=== PATIENT | female | born 1950 | race Caucasian/White ===

== ENCOUNTER 2017-04-16 14:15 | Inpatient (IN) ==
--- NOTE | 2017-04-16 14:54 | Internal Med History&Physical ---
Date of Encounter: 04/16/17 Time of Encounter: 15:35 Assessment and Plan (1) CVA (cerebral vascular accident) Current visit: Yes Status: Acute Patient's here for rehabilitation due to weakness poor balance right sided weakness Qualifiers: Precerebral and cerebral artery: unspecified precerebral artery Qualified Code(s): I63.00 - Cerebral infarction due to thrombosis of unspecified precerebral artery (2) COPD (chronic obstructive pulmonary disease) Current visit: Yes Status: Acute Right now seems quiescent. Qualifiers: COPD type: emphysema Qualified Code(s): J43.9 - Emphysema, unspecified (3) HTN (hypertension) Current visit: Yes Status: Acute Will follow blood pressure Qualifiers: Hypertension type: essential hypertension Qualified Code(s): I10 - Essential (primary) hypertension Internal Medicine - H&P: HPI Chief complaint: Patient has CVA was transferred here for rehabilitation. She has some righ Admitted From: Hospital to Hospital Transfer Plans for Post Hospital Care: Home History of present illness: Ms. Monzon is a 66 year old female The patient lives alone but has a daughter that helps her and is here for rehabilitation Past Med Surg Social Fam HX - Past Medical History Medical history: COPD, GERD (diverticulosis,), hypertension - Past Surgical History Surgical History: breast surgery (Umbilical hernia repair), , cholecystectomy Internal Medicine - H&P: Meds ALPRAZolam [Xanax 0.5 MG Tablet] 0.5 mg PO BID 04/16/17 [History] Albuterol Sulfate [Proair Hfa] 2 puff IH Q2HR PRN 04/16/17 [History] Aspirin [Ecotrin] 81 mg PO DAILY 04/16/17 [History] Atorvastatin [Lipitor] 10 mg PO HS 04/16/17 [History] Clopidogrel Bisulfate [Plavix] 75 mg PO DAILY 04/16/17 [History] Dicyclomine [Bentyl] 10 mg PO QID PRN 04/16/17 [History] Fluticasone/Salmeterol [Advair 250-50 Diskus] 1 each IH BID 04/16/17 [History] Lisinopril [Zestril] 10 mg PO DAILY 04/16/17 [History] Ondansetron [Zofran] 8 mg PO Q8HR PRN 04/16/17 [History] Pantoprazole Sodium [Protonix] 40 mg PO DAILY 04/16/17 [History] Polyethylene Glycol [Polyox Wsr-301] 1 gm PO DAILY 04/16/17 [History] PredniSONE [Renard] 5 mg PO DAILY 04/16/17 [History] Saxagliptin HCl [Onglyza] 5 mg PO 04/16/17 [History] Tiotropium [Spiriva] 18 mcg IH 0700 04/16/17 [History] Tramadol HCl [Ultram] 50 mg PO BID PRN 04/16/17 [History] Allergies levofloxacin [From Levaquin] Allergy (Mild, Verified 04/16/17 15:16) Rash atenolol Allergy (Verified 04/16/17 15:17) Rash Gatifloxacin [From Tequin] Allergy (Verified 04/16/17 15:18) Rash All Systems PM: A 10-system review of systems was performed and is negative for pertinent findings except as documented above in the HPI. - Constitutional Vitals: Temp Pulse Resp BP Pulse Ox 98.3 F 66 16 163/82 93 04/16/17 14:34 04/16/17 14:34 04/16/17 14:34 04/16/17 14:34 04/16/17 14:34 - Head Head exam: Present: atraumatic, normal inspection, normocephalic - Neck Neck exam general surgery: Present: supple, trachea midline. Absent: lymphadenopathy - Respiratory Respiratory exam: Present: CTAB. Absent: accessory muscle use, rales, rhonchi, wheezes - Cardiovascular Cardiovascular exam: Present: RRR, +S1, +S2. Absent: diastolic murmur, gallop, rubs, systolic murmur - Neurological Exam Neurological exam: Present: CN II-XII intact, oriented X3, no focal deficits, facial droop (Facial droop seems to have resolved generally speaking. Speech is clear. still seems to be some dysphagia..). Absent: pronater drift, speech deficit
[2017-04-16] MEDS ORDERED: ALPRAZolam 0.5 MG TABLET PO SCH (17:00)
[2017-04-16] MEDS: ALPRAZolam 0.5 MG TABLET PO PRN (17:01)
[2017-04-16] MEDS ORDERED: D5% in Water 1,000 ML IVC PRN (17:13)
[2017-04-16] MEDS ORDERED: *HR* Dextrose 50 % in Water (Syg) 50 ML SYRINGE IVP PRN (17:13)
[2017-04-16] MEDS ORDERED: Dextrose Gel 15 GM PO PRN ×2 (17:13)
[2017-04-16] MEDS: Insulin LISPRO 300 UNITS/3 ML VIAL SQ SCH (20:43)
[2017-04-16] MEDS: traMADol 50 MG TABLET PO PRN (20:46)
[2017-04-16] MEDS: ALPRAZolam 0.5 MG TABLET PO SCH (20:47)
[2017-04-16] MEDS: Budesonide/Formoterol 80/4.5 MDI IH SCH (20:47)
[2017-04-17 05:27] LABS: INR 1.1; Prothrombin Time 11.4 Seconds (9.4-12.1)
[2017-04-17 05:28] LABS: Basophils # 0.1 K/mcL (0.0-0.2); Basophils % 0.4 %; Eosinophils # 0.2 K/mcL (0.0-0.6); Eosinophils % 1.5 %; Hematocrit 37.5 % (35.3-44.9); Hemoglobin 12.8 g/dL (11.5-15.4); Immature Granulocytes % 0.6 % (0-4); Lymphocytes # 3.7 K/mcL (0.6-4.6); Lymphocytes % 30.1 %; Mean Corpuscular HGB Conc 34.1 g/dL (31.6-35.5); Mean Corpuscular Hemoglobin 29.6 pg (28.0-33.3); Mean Corpuscular Volume 86.6 fL (83.0-100.0); Mean Platelet Volume 10.6 fL (9.4-12.4); Monocytes # 1.1 K/mcL (0.0-1.3); Monocytes % 9.2 %; Neutrophils # 7.2 K/mcL (1.6-8.9); Platelet Count 280 K/mcL (140-400); Red Blood Count 4.33 M/mcL (3.82-4.97); Red Cell Distribution Width 12.8 % (11.5-14.5); Segmented Neutrophils % 58.2 %
[2017-04-17 05:39] LABS: BUN/Creatinine Ratio 7 (6-26); Carbon Dioxide 28 mEq/L (19-29); Chloride 102 mEq/L (98-109); Glucose 136 mg/dL (70-99); Osmolality,Calculated 287 (280-300); Potassium 3.5 mEq/L (3.5-4.5); Sodium 139 mEq/L (136-145); eGFR For African Americans > 60 (> 60); eGFR For Non-African Americans > 60 (> 60)
[2017-04-17 05:46] LABS: Blood Urea Nitrogen 5 mg/dL (7-20)
[2017-04-17] MEDS: Tiotropium 18 MCG inhalation IH SCH (06:11)
[2017-04-17] MEDS: traMADol 50 MG TABLET PO PRN ×2 (06:20→14:02)
[2017-04-17] MEDS: Insulin LISPRO 300 UNITS/3 ML VIAL SQ SCH ×4 (07:38→20:31)
[2017-04-17] MEDS: predniSONE 5 MG TABLET PO SCH (08:01)
[2017-04-17] MEDS: SAXAGLIPTIN 5 MG PO SCH ×2 (08:02→13:59)
[2017-04-17] MEDS: ALPRAZolam 0.5 MG TABLET PO SCH ×2 (08:02→20:34)
[2017-04-17] MEDS: Budesonide/Formoterol 80/4.5 MDI IH SCH ×2 (10:33→20:32)
[2017-04-17] MEDS: Aspirin Enteric Coated 81 MG Tablet PO SCH (10:33)
--- NOTE | 2017-04-17 11:53 | Internal Med Progress Note ---
Date of Encounter: 04/17/17 Time of Encounter: 11:51 - Assessment and plan (1) CVA (cerebral vascular accident) Current Visit: Yes Status: Acute Assessment and plan: Patient's currently working with PT OT TR. Doing very well. She also sees speech for dysphagia Qualifiers: Precerebral and cerebral artery: unspecified precerebral artery Qualified Code(s): I63.00 - Cerebral infarction due to thrombosis of unspecified precerebral artery (2) COPD (chronic obstructive pulmonary disease) Current Visit: Yes Status: Acute Assessment and plan: No problems right now with breathing Qualifiers: COPD type: emphysema Qualified Code(s): J43.9 - Emphysema, unspecified (3) HTN (hypertension) Current Visit: Yes Status: Acute Assessment and plan: Blood pressure reasonable watch the diastolic Qualifiers: Hypertension type: essential hypertension Qualified Code(s): I10 - Essential (primary) hypertension - Time Spent With Patient less than 15 minutes - Subjective Interval history: The patient looks very good. She is up dressed and working with therapists. She is up with walker. And her only complaint is right shoulder pain after a fall at home. We will get an x-ray on that. I doubt there are any fractures because she can add abduct.the shoulder without pain to much - Constitutional Vitals: Temp Pulse Resp BP Pulse Ox 98.0 F 60 16 158/77 94 04/17/17 06:54 04/17/17 06:54 04/17/17 06:54 04/17/17 06:54 04/17/17 06:54 - Head Head exam: Present: atraumatic, normal inspection, normocephalic - Neck Neck exam general surgery: Present: supple, trachea midline. Absent: lymphadenopathy - Respiratory Respiratory exam: Present: CTAB. Absent: accessory muscle use, rales, rhonchi, wheezes - Cardiovascular Cardiovascular exam: Present: RRR, +S1, +S2. Absent: diastolic murmur, gallop, rubs, systolic murmur Internal Medicine: Result - Labs CBC & Chem 7: 04/17/17 05:15 04/17/17 05:15 Labs: Short CBC 04/17/17 Range/Units 05:15 WBC 12.3 H (4.3-11.1) K/mcL Hgb 12.8 (11.5-15.4) g/dL Hct 37.5 (35.3-44.9) % Plt Count 280 (140-400) K/mcL Neutrophils # 7.2 (1.6-8.9) K/mcL BMP 04/17/17 05:15 Sodium 139 Potassium 3.5 Chloride 102 Carbon Dioxide 28 BUN 5 L Creatinine 0.68 Glucose 136 H Calcium 10.0 Labs stable - ABG Interpretation ABG results: PT/INR, D-dimer PT 11.4 Seconds (9.4-12.1) 04/17/17 05:15 - VTE Documentation of Mechanical Device: Graduated compression elastic hosiery Consult Discharge Plan - Plan Referrals: NO,PCP [Primary Care Provider] -
[2017-04-17] MEDS: Patient Taking Own Medication 1 EACH PO SCH ×2 (14:38→20:32)
[2017-04-17] MEDS: ALPRAZolam 0.5 MG TABLET PO PRN (16:43)
[2017-04-18] MEDS: Tiotropium 18 MCG inhalation IH SCH (05:36)
[2017-04-18] MEDS: Insulin LISPRO 300 UNITS/3 ML VIAL SQ SCH ×4 (07:21→20:18)
[2017-04-18] MEDS: ALPRAZolam 0.5 MG TABLET PO SCH ×2 (08:18→19:44)
[2017-04-18] MEDS: Aspirin Enteric Coated 81 MG Tablet PO SCH (09:53)
[2017-04-18] MEDS: predniSONE 5 MG TABLET PO SCH (09:53)
[2017-04-18] MEDS: ALPRAZolam 0.5 MG TABLET PO PRN ×2 (09:54→14:09)
[2017-04-18] MEDS: Patient Taking Own Medication 1 EACH PO SCH (10:00)
[2017-04-18] MEDS: Budesonide/Formoterol 80/4.5 MDI IH SCH ×2 (10:01→19:49)
--- NOTE | 2017-04-18 11:22 | Internal Med Progress Note ---
Date of Encounter: 04/18/17 Time of Encounter: 11:20 - Assessment and plan (1) CVA (cerebral vascular accident) Current Visit: Yes Status: Acute Assessment and plan: Here for CVA treatment. Very nervous very nervous. She is basically anxious ridden. And we have reassured her. Today she is dressed smiling looks good and I explained her that tomorrow will be hitting the therapy. Qualifiers: Precerebral and cerebral artery: unspecified precerebral artery Qualified Code(s): I63.00 - Cerebral infarction due to thrombosis of unspecified precerebral artery (2) COPD (chronic obstructive pulmonary disease) Current Visit: Yes Status: Acute Assessment and plan: COPD by history right now seems quiescent Qualifiers: COPD type: emphysema Qualified Code(s): J43.9 - Emphysema, unspecified (3) HTN (hypertension) Current Visit: Yes Status: Acute Assessment and plan: Patient has well controlled blood pressure Qualifiers: Hypertension type: essential hypertension Qualified Code(s): I10 - Essential (primary) hypertension - Time Spent With Patient less than 15 minutes - Subjective Interval history: Patient very nervous lady. Patient's blood sugars are well controlled to lunch was 116. So she is doing very well there. They are warm and pulses are good and basically she needs reassurance. - Constitutional Vitals: Temp Pulse Resp BP Pulse Ox 97.8 F 66 16 118/69 94 04/18/17 07:00 04/18/17 07:00 04/18/17 07:00 04/18/17 07:00 04/18/17 07:00 - Head Head exam: Present: atraumatic, normal inspection, normocephalic - Neck Neck exam general surgery: Present: supple, trachea midline. Absent: lymphadenopathy - Respiratory Respiratory exam: Present: decreased breath sounds, CTAB, prolonged expiratory phase. Absent: accessory muscle use, rales, rhonchi, wheezes - Cardiovascular Cardiovascular exam: Present: RRR, +S1, +S2. Absent: diastolic murmur, gallop, rubs, systolic murmur Internal Medicine: Result - Labs CBC & Chem 7: 04/17/17 05:15 04/17/17 05:15 Labs: Labs good - ABG Interpretation ABG results: PT/INR, D-dimer PT 11.4 Seconds (9.4-12.1) 04/17/17 05:15 - Impressions Impressions Shoulder X-Ray 04/17/17 11:50 IMPRESSION: Degenerative changes without acute osseous abnormality D/ / Braden Koenig / Braden Koenig Interpreting Provider: Braden Koenig - VTE Documentation of Mechanical Device: Graduated compression elastic hosiery Consult Discharge Plan - Plan Referrals: NO,PCP [Primary Care Provider] -
[2017-04-18] MEDS: traMADol 50 MG TABLET PO PRN (12:06)
[2017-04-18] MEDS: MOM Conc 10 ML UD.LIQ PO SCH (19:44)
[2017-04-19 05:43] LABS: Basophils % 0.2 %; Eosinophils # 0.2 K/mcL (0.0-0.6); Eosinophils % 1.5 %; Hematocrit 36.9 % (35.3-44.9); Hemoglobin 12.1 g/dL (11.5-15.4); Immature Granulocytes % 0.9 % (0-4); Lymphocytes # 3.3 K/mcL (0.6-4.6); Lymphocytes % 27.7 %; Mean Corpuscular HGB Conc 32.8 g/dL (31.6-35.5); Mean Corpuscular Hemoglobin 29.2 pg (28.0-33.3); Mean Corpuscular Volume 89.1 fL (83.0-100.0); Mean Platelet Volume 10.9 fL (9.4-12.4); Monocytes # 1.2 K/mcL (0.0-1.3); Monocytes % 10.1 %; Neutrophils # 7.2 K/mcL (1.6-8.9); Platelet Count 289 K/mcL (140-400); Red Blood Count 4.14 M/mcL (3.82-4.97); Red Cell Distribution Width 13.2 % (11.5-14.5); Segmented Neutrophils % 59.6 %
[2017-04-19 05:53] LABS: BUN/Creatinine Ratio 11 (6-26); Blood Urea Nitrogen 8 mg/dL (7-20); Calcium 9.5 mg/dL (8.6-10.8); Carbon Dioxide 30 mEq/L (19-29); Chloride 101 mEq/L (98-109); Glucose 161 mg/dL (70-99); Osmolality,Calculated 290 (280-300); Potassium 3.9 mEq/L (3.5-4.5); Sodium 139 mEq/L (136-145); eGFR For African Americans > 60 (> 60); eGFR For Non-African Americans > 60 (> 60)
[2017-04-19] MEDS: Aspirin Enteric Coated 81 MG Tablet PO SCH (08:38)
[2017-04-19] MEDS: traMADol 50 MG TABLET PO PRN (09:04)
[2017-04-19] MEDS: Patient Taking Own Medication 1 EACH PO SCH ×2 (09:06→21:57)
[2017-04-19] MEDS: predniSONE 5 MG TABLET PO SCH (09:06)
[2017-04-19] MEDS: ALPRAZolam 0.5 MG TABLET PO SCH ×2 (09:06→21:57)
[2017-04-19] MEDS: Insulin LISPRO 300 UNITS/3 ML VIAL SQ SCH ×2 (09:07→13:13)
[2017-04-19] MEDS: ALPRAZolam 0.5 MG TABLET PO PRN (10:47)
[2017-04-19] MEDS: Tiotropium 18 MCG inhalation IH SCH (10:48)
[2017-04-19] MEDS: Budesonide/Formoterol 80/4.5 MDI IH SCH ×2 (10:48→21:58)
--- NOTE | 2017-04-19 13:49 | Internal Med Progress Note ---
Date of Encounter: 04/19/17 Time of Encounter: 13:47 - Assessment and plan (1) CVA (cerebral vascular accident) Current Visit: Yes Status: Acute Assessment and plan: Patient's here for CVA recovery Qualifiers: Precerebral and cerebral artery: unspecified precerebral artery Qualified Code(s): I63.00 - Cerebral infarction due to thrombosis of unspecified precerebral artery (2) COPD (chronic obstructive pulmonary disease) Current Visit: Yes Status: Acute Assessment and plan: COPD seems quiet Qualifiers: COPD type: emphysema Qualified Code(s): J43.9 - Emphysema, unspecified (3) HTN (hypertension) Current Visit: Yes Status: Acute Assessment and plan: Blood pressure is well controlled Qualifiers: Hypertension type: essential hypertension Qualified Code(s): I10 - Essential (primary) hypertension - Time Spent With Patient less than 15 minutes - Subjective Interval history: Patient's anxiety still her most limiting factor. She had a good day though ambulating with a walker working with therapist and the nurse took her to the [employer] shop. She is very happy about that but still continues to have many many multiple issues. - Constitutional Vitals: Temp Pulse Resp BP Pulse Ox 97.8 F 78 16 132/70 96 04/19/17 07:43 04/19/17 07:43 04/19/17 07:43 04/19/17 07:43 04/19/17 07:43 - Head Head exam: Present: atraumatic, normal inspection, normocephalic - Neck Neck exam general surgery: Present: supple, trachea midline. Absent: lymphadenopathy - Respiratory Respiratory exam: Present: CTAB. Absent: accessory muscle use, rales, rhonchi, wheezes - Cardiovascular Cardiovascular exam: Present: RRR, +S1, +S2. Absent: diastolic murmur, gallop, rubs, systolic murmur Internal Medicine: Result - Labs CBC & Chem 7: 04/19/17 05:10 04/19/17 05:10 Labs: Short CBC 04/19/17 Range/Units 05:10 WBC 12.0 H (4.3-11.1) K/mcL Hgb 12.1 (11.5-15.4) g/dL Hct 36.9 (35.3-44.9) % Plt Count 289 (140-400) K/mcL Neutrophils # 7.2 (1.6-8.9) K/mcL BMP 04/19/17 05:10 Sodium 139 Potassium 3.9 Chloride 101 Carbon Dioxide 30 H BUN 8 Creatinine 0.73 Glucose 161 H Calcium 9.5 Lab is stable - ABG Interpretation ABG results: PT/INR, D-dimer PT 11.4 Seconds (9.4-12.1) 04/17/17 05:15 - VTE Documentation of Mechanical Device: Graduated compression elastic hosiery Consult Discharge Plan - Plan Referrals: NO,PCP [Primary Care Provider] -
[2017-04-19 16:54] LABS: Bilirubin,Urine Negative (Negative); Blood,Urine Negative (Negative); Clarity,Urine Clear (Clear); Color,Urine Yellow (Yellow); Glucose,Urine (UA) Normal (Normal); Ketones,Urine Negative (Negative); Leukocyte Esterase,Urine Negative (Negative); Nitrite,Urine Negative (Negative); PH,Urine 6.5 pH Units (5.0-8.0); Protein,Urine Negative (Neg-Trace); Urobilinogen,Urine Normal (Normal)
[2017-04-19] MEDS: MOM Conc 10 ML UD.LIQ PO SCH (21:57)
[2017-04-19] MEDS: Acetaminophen 325 MG TABLET PO PRN (21:57)
[2017-04-20] MEDS: ALPRAZolam 0.5 MG TABLET PO SCH ×2 (09:13→21:38)
[2017-04-20] MEDS: Aspirin Enteric Coated 81 MG Tablet PO SCH (09:14)
[2017-04-20] MEDS: predniSONE 5 MG TABLET PO SCH (09:14)
[2017-04-20] MEDS: Tiotropium 18 MCG inhalation IH SCH (09:14)
[2017-04-20] MEDS: Budesonide/Formoterol 80/4.5 MDI IH SCH ×2 (09:14→21:39)
--- NOTE | 2017-04-20 13:50 | Internal Med Progress Note ---
Date of Encounter: 04/20/17 Time of Encounter: 13:48 - Assessment and plan (1) CVA (cerebral vascular accident) Current Visit: Yes Status: Acute Assessment and plan: Patient's working with therapists. Qualifiers: Precerebral and cerebral artery: unspecified precerebral artery Qualified Code(s): I63.00 - Cerebral infarction due to thrombosis of unspecified precerebral artery (2) COPD (chronic obstructive pulmonary disease) Current Visit: Yes Status: Acute Assessment and plan: Noted but no current problem Qualifiers: COPD type: emphysema Qualified Code(s): J43.9 - Emphysema, unspecified (3) HTN (hypertension) Current Visit: Yes Status: Acute Assessment and plan: Blood pressures controlled Qualifiers: Hypertension type: essential hypertension Qualified Code(s): I10 - Essential (primary) hypertension - Time Spent With Patient less than 15 minutes - Subjective Interval history: Again we are problem the med. Apparently someone started the patient on the [facility]. She states now she has a sore throat and the saline new thing and she thinks she is breaking out all over because of it. I put a stop to the Lipitor and started Chloraseptic for her throat. - Constitutional Vitals: Temp Pulse Resp BP Pulse Ox 97.7 F 76 16 160/87 94 04/20/17 07:00 04/20/17 07:00 04/20/17 07:00 04/20/17 07:00 04/20/17 07:00 - Head Head exam: Present: atraumatic, normocephalic - Neck Neck exam general surgery: Present: supple, trachea midline. Absent: lymphadenopathy - Respiratory Respiratory exam: Present: CTAB. Absent: accessory muscle use, rales, rhonchi, wheezes Internal Medicine: Result - Labs CBC & Chem 7: 04/19/17 05:10 04/19/17 05:10 Labs: Urine 04/19/17 Range/Units 16:35 Urine Color Yellow (Yellow) Urine Clarity Clear (Clear) Urine pH 6.5 (5.0-8.0) pH Units Ur Specific [place] 1.010 (1.010-1.025) Urine Protein Negative (Neg-Trace) mg/dL Urine Glucose (UA) Normal (Normal) mg/dL No problem - ABG Interpretation ABG results: PT/INR, D-dimer PT 11.4 Seconds (9.4-12.1) 04/17/17 05:15 - VTE Documentation of Mechanical Device: Graduated compression elastic hosiery Consult Discharge Plan - Plan Referrals: NO,PCP [Primary Care Provider] -
[2017-04-20] MEDS: traMADol 50 MG TABLET PO PRN (14:11)
[2017-04-20] MEDS: Chloraseptic Spray 177 ML BOTTLE MM PRN ×2 (14:11→18:59)
[2017-04-20] MEDS: ALPRAZolam 0.5 MG TABLET PO PRN (15:18)
[2017-04-20] MEDS: MOM Conc 10 ML UD.LIQ PO SCH (21:39)
[2017-04-21] MEDS: Chloraseptic Spray 177 ML BOTTLE MM PRN (00:51)
[2017-04-21] MEDS: Tiotropium 18 MCG inhalation IH SCH (08:09)
[2017-04-21] MEDS: predniSONE 5 MG TABLET PO SCH (08:16)
[2017-04-21] MEDS: ALPRAZolam 0.5 MG TABLET PO SCH ×2 (08:16→20:55)
[2017-04-21] MEDS: Aspirin Enteric Coated 81 MG Tablet PO SCH (08:16)
[2017-04-21] MEDS: Budesonide/Formoterol 80/4.5 MDI IH SCH ×2 (08:20→20:50)
[2017-04-21] MEDS: traMADol 50 MG TABLET PO PRN (09:06)
--- NOTE | 2017-04-21 14:53 | Physcial Medicine-Consult Note ---
Date of Encounter: 04/21/17 Time of Encounter: 14:48 Physical Medicine - AP (1) CVA (cerebral vascular accident) Status: Acute Assessment and plan: 1. CVA: Ms. Monzon is suffering from sequelae from her CVA. Her largest barrier is her poor gait and balance. Continue with intensive PT/OT/ST/TR to address gait, safety, transfers, ADLS, and her dysphagia. Code(s): I63.9 - Cerebral infarction, unspecified SNOMED Code(s): 103645470 (2) Depression Status: Acute Assessment and plan: 1. Ms. Monzon is suffering from significant depression. She has a lot of family stressors at this time. She reports a history of depression as well. We will start on celexa for depression and continue with counseling as an outpatient. Code(s): F32.9 - Major depressive disorder, single episode, unspecified SNOMED Code(s): 07956985 (3) Thrush, oral Status: Acute Assessment and plan: 1. Start on nystatin swish and spit. Code(s): B37.0 - Candidal stomatitis SNOMED Code(s): 88785576 Physical Medicine - HPI - Data of Consult Consult date: 04/21/17 Requesting Physician: Russ Boudreaux DO Primary Care Provider: PCP NO - Consult Narrative Reason for consult: CVA History of present illness: Ms. Monzon is a 66 year old female who presented to an outside hospital with complaints of altered mental status. Patient was confused and had difficulty with ambulation. Initial head CT revealed no acute abnormalities. An mri of her brain revealed a lacunar infarct in the right basal ganglia and cerebellar hemisphere. Patient was evaluated by speech and placed on a pureed diet with honey thickened liquids. She was stabilized and transferred for inpatient rehabilitation. CC: Russ Boudreaux DO Past Med Surg Social Fam HX - Past Medical History Medical history: COPD, GERD (diverticulosis,), hypertension Psychiatric history: anxiety, depression - Past Surgical History Surgical History: breast surgery (Umbilical hernia repair), , cholecystectomy - Social History Smoking Status: Former smoker Smokeless Tobacco Status: No Alcohol use: none Drug use: none Current living situation: Home - Independent Activity Level: Independent ambulation Medications and Allergies ALPRAZolam [Xanax 0.5 MG Tablet] 0.5 mg PO BID 04/16/17 [History] Albuterol Sulfate [Proair Hfa] 2 puff IH Q2HR PRN 04/16/17 [History] Aspirin [Ecotrin] 81 mg PO DAILY 04/16/17 [History] Atorvastatin [Lipitor] 10 mg PO HS 04/16/17 [History] Clopidogrel Bisulfate [Plavix] 75 mg PO DAILY 04/16/17 [History] Dicyclomine [Bentyl] 10 mg PO QID PRN 04/16/17 [History] Fluticasone/Salmeterol [Advair 250-50 Diskus] 1 each IH BID 04/16/17 [History] Lisinopril [Zestril] 10 mg PO DAILY 04/16/17 [History] Ondansetron [Zofran] 8 mg PO Q8HR PRN 04/16/17 [History] Pantoprazole Sodium [Protonix] 40 mg PO DAILY 04/16/17 [History] Polyethylene Glycol [Polyox Wsr-301] 1 gm PO DAILY 04/16/17 [History] PredniSONE [Renard] 5 mg PO DAILY 04/16/17 [History] Saxagliptin HCl [Onglyza] 5 mg PO 04/16/17 [History] Tiotropium [Spiriva] 18 mcg IH 0700 04/16/17 [History] Tramadol HCl [Ultram] 50 mg PO BID PRN 04/16/17 [History] Allergies levofloxacin [From Levaquin] Allergy (Mild, Verified 04/16/17 15:16) Rash atenolol Allergy (Verified 04/16/17 15:17) Rash Gatifloxacin [From Tequin] Allergy (Verified 04/16/17 15:18) Rash - Constitutional Constitutional: Absent: anorexia, chills, daytime sleepiness, headache(s) - EENT Eyes: Absent: blurry vision - Cardiovascular Cardiovascular: Absent: chest pain, diaphoresis - Respiratory Respiratory: Absent: dyspnea on exertion - Gastrointestinal Gastrointestinal: Absent: abdominal pain, constipation - Genitourinary Genitourinary: Present: urinary frequency, urinary urgency - Musculoskeletal Musculoskeletal: Present: abnormal gait - Psychiatric Psychiatric: Present: depression Physical Medicine - Exam - Constitutional Vitals: Temp Pulse Resp BP Pulse Ox 98.1 F 80 16 117/82 94 04/21/17 07:18 04/21/17 07:18 04/21/17 07:18 04/21/17 07:18 04/21/17 07:18 General appearance: cooperative, mild distress - Head Head exam: Present: atraumatic Additional comments: Mild left facial droop. - Respiratory Respiratory exam: Present: CTAB - Cardiovascular Cardiovascular exam: Present: RRR - GI/Abdominal GI/Abdominal exam: Present: normal bowel sounds, soft. Absent: tenderness - Extremities Exam Extremities exam: Present: full ROM, normal inspection. Absent: calf tenderness , joint swelling Additional comments: Motor strength is 5/5 in the bilateral upper limbs. - Neurological Exam Neurological exam: Present: abnormal gait, CN II-XII intact Additional comments: Patient ambulates with an antalgic gait. Often with scissoring gait. Poor balance. Physical Medicine - Results - Labs CBC & Chem 7: 04/19/17 05:10 04/19/17 05:10 - Impressions ITS Impressions Shoulder X-Ray 04/17/17 11:50 IMPRESSION: Degenerative changes without acute osseous abnormality D/ / Braden Koenig / Braden Koenig Interpreting Provider: Braden Koenig Consult Discharge Plan - Plan Referrals: NO,PCP [Primary Care Provider] -
--- NOTE | 2017-04-21 14:57 | Psychological Evaluation ---
Date of Encounter: 04/21/17 Time of Encounter: 11:00 History of Present Illness History of present illness: Ms. Monzon is a 66 year old female admitted to [facility] for rehab following a recent CVA with resultant right side weakness and poor balance. Ms. Monzon was seen to address her emotional status as it has been noted that she is quite distressed regarding her home situation. Past Medical History Medical history: Significant for COPD, HTN, GERD and diverticulosis. - Psychiatric History Additional Psychiatric History: There is no history of psychiatric hospitalization but Ms. Monzon reported that she has been treated by a psychiatrist in the past for depression/anxiety. She has also received therapy "many times" for marital and personal issues. She currently takes Xanax .5(2-3/day) and has been on Celexa for depression. There is no history of suicidal ideation, intention, plans or previous attempts. There is no family history of psychiatric or mental health issues. Home Medications and Allergies ALPRAZolam [Xanax 0.5 MG Tablet] 0.5 mg PO BID 04/16/17 [History] Albuterol Sulfate [Proair Hfa] 2 puff IH Q2HR PRN 04/16/17 [History] Aspirin [Ecotrin] 81 mg PO DAILY 04/16/17 [History] Atorvastatin [Lipitor] 10 mg PO HS 04/16/17 [History] Clopidogrel Bisulfate [Plavix] 75 mg PO DAILY 04/16/17 [History] Dicyclomine [Bentyl] 10 mg PO QID PRN 04/16/17 [History] Fluticasone/Salmeterol [Advair 250-50 Diskus] 1 each IH BID 04/16/17 [History] Lisinopril [Zestril] 10 mg PO DAILY 04/16/17 [History] Ondansetron [Zofran] 8 mg PO Q8HR PRN 04/16/17 [History] Pantoprazole Sodium [Protonix] 40 mg PO DAILY 04/16/17 [History] Polyethylene Glycol [Polyox Wsr-301] 1 gm PO DAILY 04/16/17 [History] PredniSONE [Renard] 5 mg PO DAILY 04/16/17 [History] Saxagliptin HCl [Onglyza] 5 mg PO 04/16/17 [History] Tiotropium [Spiriva] 18 mcg IH 0700 04/16/17 [History] Tramadol HCl [Ultram] 50 mg PO BID PRN 04/16/17 [History] Allergies levofloxacin [From Levaquin] Allergy (Mild, Verified 04/16/17 15:16) Rash atenolol Allergy (Verified 04/16/17 15:17) Rash Gatifloxacin [From Tequin] Allergy (Verified 04/16/17 15:18) Rash Social History - Social History Social History: Ms. Monzon is in the middle of a divorce from her second of 21 years. They have been together, however, for 35 years and she reported that he walked out on her and has been having an affair. They September 2016 and she acknowledged that she remains very angry and upset with him regarding how he has treated her. Prior to her CVA, Ms. Monzon was living alone in an apartment. She has a daughter (age 41 who is a nurse) and she has 3 stepchildren but does not have a good relationship with her stepchildren Social support system consists of her daughter and two friends. Ms. Monzon is on Social Security Disability for COPD and scoliosis. She reported that she was the main financial provider in the household until she was declared disabled. 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 She was independent with health clinician and reported that she enjoyed being busy to distract herself from stress and feeling sad. - Tobacco Use Smoking Status: Current every day smoker (Has not smoked since being hospitalized.) - Alcohol Use Alcohol Use: none Cognitive/Emotional Assessment - Cognitive Ability Additional Findings: Ms. Monzon was alert, attentive and fully oriented. Speech was clear, effective and fluent. Thought processes were coherent and logical but she perseverated on her marital problems and her anger at her . She needed to be redirected and we spent time talking about how much time she was taking away from her rehab goals/therapy by focusing on her anger towards her . Ms. Monzon had great difficulty shifting her concentration/attention away from personal matters and on her rehab goals. She reported that she wants to return to independent community living and was able to correctly identify barriers to her being able to live alone at this time and areas that she needs to improve/address in her therapies. Memory was not formally assessed. Auditory comprehension appeared within normal limits and she did not exhibit problems with naming or word finding. - Emotional Status Additional Findings: Ms. Monzon was pleasant, friendly and cooperative. As noted above, she was perseverative regarding her home situation and the anger she feels towards her . She became tearful as she talked of her frustration and anger. She recognized that she "need to get him out of my mind" and focus on her rehab but struggles, in general, focusing on her own needs. She reported that she has been "emotionally distressed since I met him". She has not been taking her antidepressant medication and she has not been attending counseling. We spent time talking about the benefit of going to counseling past-discharge for [facility] but she cited several reasons why this may be difficult for her. She is currently under a significant amount of stress/life changes (moved into her apartment January 2016; divorce proceedings began September 2016; estranged from family; recent CVA and sold house she had shared with her ). Assessment & Plan - Treatment Plan Treatment Plan/Recommendations: Ms. Monzon will be followed while she is a patient at [facility] to address relationship issues and her depressed mood. We spent time talking about her coping strategies and she was instructed to not talk about her marital problems while in therapy and to use distraction techniques. She may need to be redirected and encouraged to focus on her rehab goals while she is participating in therapy. She finds visual imagery and listening to music as good distraction/relaxation techniques. Procedures - Modality Modality: Psychotherapy 60 minutes - Session Time Session Start Time: 11:00 Session Stop Time: 12:00
[2017-04-21] MEDS: Nystatin SUSP 5 ML UD.LIQ PO SCH ×2 (15:37→20:50)
[2017-04-21] MEDS: ALPRAZolam 0.5 MG TABLET PO PRN (18:08)
[2017-04-21] MEDS: Patient Taking Own Medication 1 EACH PO SCH (20:55)
[2017-04-21] MEDS: MOM Conc 10 ML UD.LIQ PO SCH (20:55)
[2017-04-22] MEDS: Chloraseptic Spray 177 ML BOTTLE MM PRN (03:48)
[2017-04-22] MEDS: Acetaminophen 325 MG TABLET PO PRN (03:53)
[2017-04-22] MEDS: predniSONE 5 MG TABLET PO SCH (08:29)
[2017-04-22] MEDS: Aspirin Enteric Coated 81 MG Tablet PO SCH (08:29)
[2017-04-22] MEDS: ALPRAZolam 0.5 MG TABLET PO SCH ×2 (08:29→20:16)
[2017-04-22] MEDS: Nystatin SUSP 5 ML UD.LIQ PO SCH ×4 (08:30→20:14)
[2017-04-22] MEDS: Tiotropium 18 MCG inhalation IH SCH (08:39)
[2017-04-22] MEDS: Budesonide/Formoterol 80/4.5 MDI IH SCH ×2 (13:05→20:14)
[2017-04-22] MEDS: traMADol 50 MG TABLET PO PRN (14:09)
[2017-04-22] MEDS: MOM Conc 10 ML UD.LIQ PO SCH (20:14)
[2017-04-23] MEDS: Aspirin Enteric Coated 81 MG Tablet PO SCH (08:25)
[2017-04-23] MEDS: predniSONE 5 MG TABLET PO SCH (08:26)
[2017-04-23] MEDS: ALPRAZolam 0.5 MG TABLET PO SCH ×2 (08:26→21:34)
[2017-04-23] MEDS: Budesonide/Formoterol 80/4.5 MDI IH SCH ×2 (08:26→21:34)
[2017-04-23] MEDS: Nystatin SUSP 5 ML UD.LIQ PO SCH ×4 (08:26→21:33)
[2017-04-23] MEDS: Tiotropium 18 MCG inhalation IH SCH (08:26)
[2017-04-23] MEDS: traMADol 50 MG TABLET PO PRN (08:50)
[2017-04-23] MEDS: ALPRAZolam 0.5 MG TABLET PO PRN (14:18)
[2017-04-23] MEDS: MOM Conc 10 ML UD.LIQ PO SCH (21:33)
[2017-04-23] MEDS: Patient Taking Own Medication 1 EACH PO SCH (21:40)
--- NOTE | 2017-04-23 23:24 | Internal Med Progress Note ---
Date of Encounter: 04/23/17 Time of Encounter: 23:22 - Assessment and plan (1) CVA (cerebral vascular accident) Current Visit: Yes Status: Acute Assessment and plan: Her largest barrier is her poor gait and balance. Continue with intensive PT/OT /ST/TR to address gait, safety, transfers, ADLS, and her dysphagia. . Qualifiers: Precerebral and cerebral artery: unspecified precerebral artery Qualified Code(s): I63.00 - Cerebral infarction due to thrombosis of unspecified precerebral artery (2) Depression Current Visit: Yes Status: Chronic Assessment and plan: On antidepressant. Qualifiers: Depression Type: unspecified Qualified Code(s): F32.9 - Major depressive disorder, single episode, unspecified - Time Spent With Patient less than 15 minutes - Subjective Interval history: No new complaint today. Still does not want to participate in a lot of the therapy. No shortness of breath. No chest pain. - Constitutional Vitals: Temp Pulse Resp BP Pulse Ox 98.1 F 72 16 168/84 94 04/23/17 19:45 04/23/17 19:45 04/23/17 19:45 04/23/17 19:45 04/23/17 19:45 General appearance: Present: A&O X 2, no acute distress - Respiratory Respiratory exam: Present: CTAB. Absent: accessory muscle use, rales, rhonchi, wheezes - Cardiovascular Cardiovascular exam: Present: RRR, +S1, +S2. Absent: diastolic murmur, gallop, rubs, systolic murmur - GI/Abdominal GI/Abdominal exam: Present: normal bowel sounds, soft, no peritoneal signs. Absent: distended, tenderness - Extremities Exam Extremities exam: Present: warm, radial pulses palpable and symetrical. Absent : calf tenderness, cyanotic, pedal edema - Neurological Exam Neurological exam: Present: abnormal gait (Same right lower extremities weakness. Balance difficulty) Internal Medicine: Result - Labs CBC & Chem 7: 04/19/17 05:10 04/19/17 05:10 - ABG Interpretation ABG results: PT/INR, D-dimer PT 11.4 Seconds (9.4-12.1) 04/17/17 05:15 - VTE Documentation of Mechanical Device: Graduated compression elastic hosiery Consult Discharge Plan - Plan Referrals: NO,PCP [Primary Care Provider] -
[2017-04-24] MEDS: Acetaminophen 325 MG TABLET PO PRN (01:35)
[2017-04-24] MEDS: ALPRAZolam 0.5 MG TABLET PO PRN (01:41)
[2017-04-24] MEDS: predniSONE 5 MG TABLET PO SCH (08:35)
[2017-04-24] MEDS: Nystatin SUSP 5 ML UD.LIQ PO SCH ×4 (08:35→20:15)
[2017-04-24] MEDS: ALPRAZolam 0.5 MG TABLET PO SCH ×2 (08:35→20:15)
[2017-04-24] MEDS: Aspirin Enteric Coated 81 MG Tablet PO SCH (08:35)
[2017-04-24] MEDS: Tiotropium 18 MCG inhalation IH SCH (08:39)
[2017-04-24] MEDS: Budesonide/Formoterol 80/4.5 MDI IH SCH ×2 (08:40→20:15)
--- NOTE | 2017-04-24 09:24 | Internal Med Progress Note ---
Date of Encounter: 04/24/17 Time of Encounter: 09:23 - Assessment and plan (1) CVA (cerebral vascular accident) Current Visit: Yes Status: Acute Assessment and plan: Her largest barrier is her poor gait and balance. Continue with intensive PT/OT /ST/TR to address gait, safety, transfers, ADLS, and her dysphagia. . Qualifiers: Precerebral and cerebral artery: unspecified precerebral artery Qualified Code(s): I63.00 - Cerebral infarction due to thrombosis of unspecified precerebral artery (2) Depression Current Visit: Yes Status: Chronic Assessment and plan: On antidepressant. Qualifiers: Depression Type: unspecified Qualified Code(s): F32.9 - Major depressive disorder, single episode, unspecified - Subjective Interval history: No new complaint today. Still does not want to participate in a lot of the therapy. No shortness of breath. No chest pain. - Constitutional Vitals: Temp Pulse Resp BP Pulse Ox 98.2 F 72 18 135/82 92 04/24/17 07:14 04/24/17 07:14 04/24/17 07:14 04/24/17 07:14 04/24/17 07:14 General appearance: Present: A&O X 2, no acute distress - Respiratory Respiratory exam: Present: CTAB. Absent: accessory muscle use, rales, rhonchi, wheezes - Cardiovascular Cardiovascular exam: Present: RRR, +S1, +S2. Absent: diastolic murmur, gallop, rubs, systolic murmur - GI/Abdominal GI/Abdominal exam: Present: normal bowel sounds, soft, no peritoneal signs. Absent: distended, tenderness Internal Medicine: Result - Labs CBC & Chem 7: 04/19/17 05:10 04/19/17 05:10 - ABG Interpretation ABG results: PT/INR, D-dimer PT 11.4 Seconds (9.4-12.1) 04/17/17 05:15 - VTE Documentation of Mechanical Device: Graduated compression elastic hosiery Consult Discharge Plan - Plan Referrals: NO,PCP [Primary Care Provider] -
[2017-04-24] MEDS: traMADol 50 MG TABLET PO PRN (13:05)
[2017-04-24] MEDS: MOM Conc 10 ML UD.LIQ PO SCH (20:15)
[2017-04-25] MEDS: Tiotropium 18 MCG inhalation IH SCH (08:10)
[2017-04-25] MEDS: predniSONE 5 MG TABLET PO SCH ×2 (08:12→08:23)
[2017-04-25] MEDS: Nystatin SUSP 5 ML UD.LIQ PO SCH ×4 (08:16→19:38)
[2017-04-25] MEDS: Aspirin Enteric Coated 81 MG Tablet PO SCH (08:16)
[2017-04-25] MEDS: ALPRAZolam 0.5 MG TABLET PO SCH ×2 (08:16→19:38)
[2017-04-25] MEDS: Budesonide/Formoterol 80/4.5 MDI IH SCH ×2 (09:41→19:38)
[2017-04-25] MEDS: traMADol 50 MG TABLET PO PRN (12:01)
[2017-04-25] MEDS: MOM Conc 10 ML UD.LIQ PO SCH (19:38)
[2017-04-25] MEDS: Patient Taking Own Medication 1 EACH PO SCH (19:39)
[2017-04-26 05:57] LABS: Basophils % 0.2 %; Eosinophils # 0.2 K/mcL (0.0-0.6); Eosinophils % 1.8 %; Hematocrit 36.1 % (35.3-44.9); Hemoglobin 12.1 g/dL (11.5-15.4); Immature Granulocytes % 0.7 % (0-4); Lymphocytes # 2.8 K/mcL (0.6-4.6); Lymphocytes % 31.2 %; Mean Corpuscular HGB Conc 33.5 g/dL (31.6-35.5); Mean Corpuscular Hemoglobin 29.6 pg (28.0-33.3); Mean Corpuscular Volume 88.3 fL (83.0-100.0); Mean Platelet Volume 10.5 fL (9.4-12.4); Monocytes # 0.9 K/mcL (0.0-1.3); Monocytes % 9.6 %; Neutrophils # 5.1 K/mcL (1.6-8.9); Platelet Count 276 K/mcL (140-400); Red Blood Count 4.09 M/mcL (3.82-4.97); Red Cell Distribution Width 12.9 % (11.5-14.5); Segmented Neutrophils % 56.5 %
[2017-04-26 05:58] LABS: BUN/Creatinine Ratio 15 (6-26); Blood Urea Nitrogen 11 mg/dL (7-20); Calcium 9.5 mg/dL (8.6-10.8); Carbon Dioxide 28 mEq/L (19-29); Chloride 101 mEq/L (98-109); Glucose 126 mg/dL (70-99); Osmolality,Calculated 287 (280-300); Potassium 4.2 mEq/L (3.5-4.5); Sodium 138 mEq/L (136-145); eGFR For African Americans > 60 (> 60); eGFR For Non-African Americans > 60 (> 60)
[2017-04-26] MEDS: Aspirin Enteric Coated 81 MG Tablet PO SCH (08:17)
[2017-04-26] MEDS: predniSONE 5 MG TABLET PO SCH (08:17)
[2017-04-26] MEDS: Nystatin SUSP 5 ML UD.LIQ PO SCH ×4 (08:17→20:51)
[2017-04-26] MEDS: ALPRAZolam 0.5 MG TABLET PO SCH ×2 (08:17→20:53)
[2017-04-26] MEDS: Tiotropium 18 MCG inhalation IH SCH (08:23)
[2017-04-26] MEDS: Budesonide/Formoterol 80/4.5 MDI IH SCH ×2 (08:24→20:53)
[2017-04-26] MEDS: traMADol 50 MG TABLET PO PRN (11:08)
--- NOTE | 2017-04-26 11:29 | Internal Med Progress Note ---
Date of Encounter: 04/26/17 Time of Encounter: 11:27 - Assessment and plan (1) CVA (cerebral vascular accident) Current Visit: Yes Status: Acute Assessment and plan: Her largest barrier is her poor gait and balance. Continue with intensive PT/OT /ST/TR to address gait, safety, transfers, ADLS, and her dysphagia. . Qualifiers: Precerebral and cerebral artery: unspecified precerebral artery Qualified Code(s): I63.00 - Cerebral infarction due to thrombosis of unspecified precerebral artery (2) Depression Current Visit: Yes Status: Chronic Qualifiers: Depression Type: unspecified Qualified Code(s): F32.9 - Major depressive disorder, single episode, unspecified - Subjective Interval history: No new complaint today other than feeling generalized fatigue. She wants to go home today.. . No shortness of breath. No chest pain. - Constitutional Vitals: Temp Pulse Resp BP Pulse Ox 97.9 F 72 16 130/65 95 04/26/17 07:00 04/26/17 07:00 04/26/17 07:00 04/26/17 07:00 04/26/17 07:00 General appearance: Present: A&O X 2, no acute distress - Respiratory Respiratory exam: Present: CTAB. Absent: accessory muscle use, rales, rhonchi, wheezes - Cardiovascular Cardiovascular exam: Present: RRR, +S1, +S2. Absent: diastolic murmur, gallop, rubs, systolic murmur - Extremities Exam Extremities exam: Present: warm, radial pulses palpable and symetrical. Absent : calf tenderness, cyanotic, pedal edema Internal Medicine: Result - Labs CBC & Chem 7: 04/26/17 05:42 04/26/17 05:42 Labs: Short CBC 04/26/17 Range/Units 05:42 WBC 9.0 (4.3-11.1) K/mcL Hgb 12.1 (11.5-15.4) g/dL Hct 36.1 (35.3-44.9) % Plt Count 276 (140-400) K/mcL Neutrophils # 5.1 (1.6-8.9) K/mcL BMP 04/26/17 05:42 Sodium 138 Potassium 4.2 Chloride 101 Carbon Dioxide 28 BUN 11 Creatinine 0.72 Glucose 126 H Calcium 9.5 - ABG Interpretation ABG results: PT/INR, D-dimer PT 11.4 Seconds (9.4-12.1) 04/17/17 05:15 - VTE Documentation of Mechanical Device: Graduated compression elastic hosiery Consult Discharge Plan - Plan Referrals: NO,PCP [Primary Care Provider] -
[2017-04-26] MEDS: ALPRAZolam 0.5 MG TABLET PO PRN (16:10)
[2017-04-26] MEDS: MOM Conc 10 ML UD.LIQ PO SCH (20:52)
[2017-04-27] MEDS: Nystatin SUSP 5 ML UD.LIQ PO SCH ×4 (08:29→22:07)
[2017-04-27] MEDS: ALPRAZolam 0.5 MG TABLET PO SCH ×2 (08:29→17:50)
[2017-04-27] MEDS: Aspirin Enteric Coated 81 MG Tablet PO SCH (08:29)
[2017-04-27] MEDS: predniSONE 5 MG TABLET PO SCH (08:30)
[2017-04-27] MEDS: Tiotropium 18 MCG inhalation IH SCH (08:41)
--- NOTE | 2017-04-27 09:33 | Internal Med Progress Note ---
Date of Encounter: 04/27/17 Time of Encounter: 09:32 - Assessment and plan (1) CVA (cerebral vascular accident) Current Visit: Yes Status: Acute Assessment and plan: Her largest barrier is her poor gait and balance. Continue with intensive PT/OT /ST/TR to address gait, safety, transfers, ADLS, and her dysphagia. . Qualifiers: Precerebral and cerebral artery: unspecified precerebral artery Qualified Code(s): I63.00 - Cerebral infarction due to thrombosis of unspecified precerebral artery (2) Depression Current Visit: Yes Status: Chronic Assessment and plan: On antidepressant. Qualifiers: Depression Type: unspecified Qualified Code(s): F32.9 - Major depressive disorder, single episode, unspecified - Subjective Interval history: Complains of being nauseated. She refused her psych meds today. She is anxious. She is depressed. She cannot stop crying. No new complaint today other than feeling generalized fatigue. She wants to go home today.. . No shortness of breath. No chest pain. - Constitutional Vitals: Temp Pulse Resp BP Pulse Ox 97.9 F 66 18 173/62 95 04/27/17 07:39 04/27/17 07:39 04/27/17 07:39 04/27/17 07:39 04/27/17 07:39 General appearance: Present: A&O X 3 Exam: Patient gets tearful immediately. Has multiple nonspecific complaints. - Respiratory Respiratory exam: Present: CTAB. Absent: accessory muscle use, rales, rhonchi, wheezes - Cardiovascular Cardiovascular exam: Present: RRR, +S1, +S2. Absent: diastolic murmur, gallop, rubs, systolic murmur - GI/Abdominal GI/Abdominal exam: Present: normal bowel sounds, soft, no peritoneal signs. Absent: distended, tenderness Internal Medicine: Result - Labs CBC & Chem 7: 04/26/17 05:42 04/26/17 05:42 - ABG Interpretation ABG results: PT/INR, D-dimer PT 11.4 Seconds (9.4-12.1) 04/17/17 05:15 - VTE Documentation of Mechanical Device: Graduated compression elastic hosiery Consult Discharge Plan - Plan Referrals: NO,PCP [Primary Care Provider] -
[2017-04-27] MEDS: Budesonide/Formoterol 80/4.5 MDI IH SCH ×2 (10:24→22:05)
[2017-04-27] MEDS: Ondansetron ODT 4 MG TAB.RAPDIS PO PRN (17:07)
[2017-04-27] MEDS: Patient Taking Own Medication 1 EACH PO SCH (22:03)
[2017-04-27] MEDS: MOM Conc 10 ML UD.LIQ PO SCH (22:07)
[2017-04-28] MEDS: Acetaminophen 325 MG TABLET PO PRN (02:39)
[2017-04-28] MEDS: Budesonide/Formoterol 80/4.5 MDI IH SCH (09:59)
[2017-04-28] MEDS: predniSONE 5 MG TABLET PO SCH (09:59)
[2017-04-28] MEDS: Tiotropium 18 MCG inhalation IH SCH (09:59)
[2017-04-28] MEDS: Aspirin Enteric Coated 81 MG Tablet PO SCH (09:59)
[2017-04-28] MEDS: ALPRAZolam 0.5 MG TABLET PO SCH (10:00)
[2017-04-28] MEDS: Nystatin SUSP 5 ML UD.LIQ PO SCH ×3 (10:00→17:34)
[2017-04-28] MEDS: traMADol 50 MG TABLET PO PRN (12:27)
--- NOTE | 2017-04-28 12:31 | Physical Med Progress Note ---
Date of Encounter: 04/28/17 Time of Encounter: 12:21 Assessment and Plan (1) CVA (cerebral vascular accident) Current Visit: Yes Status: Acute Qualifiers: Precerebral and cerebral artery: unspecified precerebral artery Qualified Code(s): I63.00 - Cerebral infarction due to thrombosis of unspecified precerebral artery (2) Depression Current Visit: Yes Status: Chronic Qualifiers: Depression Type: unspecified Qualified Code(s): F32.9 - Major depressive disorder, single episode, unspecified (3) Thrush, oral Current Visit: Yes Status: Acute Physical Medicine-PN: Subj Interval history: PMR PCC Note Ms. Monzon continues to suffer from significant depression. She is perseverative. Patient is unsafe. Poor judgement and insight into her deficits. Patient is resistant to education regarding safety. Patient is ambulating with SBA. Plan for patient to ambulate with walker to and from therapies. Patients poor safety awareness is her primary barrier at this time. Cognition is at her baseline. Patients right facial weakness has improved. Plan to continue with intensive PT/OT/ST/TR. Would recommend driving evaluation prior to discharge. - Constitutional Vitals: Vital Signs Temp Pulse Resp BP Pulse Ox 04/28/17 08:01 97.5 F L 77 128/63 93 04/27/17 19:28 97.3 F L 70 18 113/79 93 Intake and Output 04/27/17 04/28/17 04/28/17 23:59 07:59 15:59 Intake Total 300 / 300 240 / 240 Balance 300 / 300 240 / 240 Intake: Oral 300 / 300 240 / 240 Other: Meal Dinner Breakfast Percent of Meal Consumed 0% 60% # Voids 1 1 1 Blood Glucose* 130 Physical Medicine-PN: Obj Data - Labs CBC & Chem 7: 04/26/17 05:42 04/26/17 05:42 Labs: Laboratory Results - last 24 hr 04/27/17 20:20 POC Glucose 130 H - ABG Interpretation ABG results: PT/INR, D-dimer PT 11.4 Seconds (9.4-12.1) 04/17/17 05:15 - VTE Documentation of Mechanical Device: Graduated compression elastic hosiery Consult Discharge Plan - Plan Referrals: NO,PCP [Primary Care Provider] -
[2017-04-28] MEDS ORDERED: Mag Hydrox/Al Hydrox/Simeth 30 ML UDC PO PRN (13:22)
--- NOTE | 2017-04-28 13:51 | Rehab Psychology Progress Note ---
Date of Encounter: 04/28/17 Time of Encounter: 11:15 Subjective - Patient Report Patient Report: Marissa stated "I'm tired and I'm hurting mentally and physically". She reported that she has started on an antidepressant medication but her mood remains depressed, discouraged and she is struggling with emotional control. She presented as open and shared her emotional struggles. - Symptoms Symptoms: Presented as tearful and cried throughout the session. She expressed negative self-statements and projection that her life is doomed to unhappiness and loneliness. Thought processes were pessimistic and ruminative. Objective - Comments Functional Status Comments: Yamilet ambulated to the session using a walker. She was able to sit for the duration of the session and she maintained appropriate eye contact. She acknowledged that she has been struggling maintaining emotional control this past week and has found herself crying and worrying. Her therapists have reported that she has exhibited poor safety awareness partly because she is inattentive when performing tasks and is easily distracted by her emotional state. - Mental Status Mental Status Changes: Marissa brought up the on-going relationship strain and pending divorce from her and she shared her fear of being alone. She had to be redirected to focus on her therapy and personal goals as she tended to vent her anger at her . Session focused on her anxiety, fears and worries that "I can't be fixed". Also addressed pain management strategies and the ineffectiveness of "pushing through" and not using/incorporating pain management strategies. Assessment and Plan - Diagnosis (1) Depression Qualifiers: Depression Type: major depressive disorder Major depression recurrence: recurrent Active/Remission status: currently active Major depression episode severity: moderate Qualified Code(s): F33.1 - Major depressive disorder, recurrent, moderate - Prognosis Prognosis: Fair - Treatment Plan Changes in Treatment Plan Goals: Will continue to provide individual therapy with Marissa while she is an inpatient at [facility]. Will use CBT techniques along with supportive therapy to address her depressed mood, low self worth and loneliness. She is to continue with outpatient psychotherapy post-discharge and she will be encouraged to engage in activities to increase her sense of self-worth (volunteering and attending her [employer] sporting events). Procedures - Intervention Interventions: Cognitive/Behavioral Therapy - Modality Modality: Psychotherapy 45 minutes - Session Time Session Start Time: 11:15 Session Stop Time: 12:00
[2017-04-28] MEDS: ALPRAZolam 0.5 MG TABLET PO PRN (13:53)
[2017-04-29] MEDS: MOM Conc 10 ML UD.LIQ PO SCH ×2 (01:04→21:44)
[2017-04-29] MEDS: Budesonide/Formoterol 80/4.5 MDI IH SCH ×3 (01:04→21:44)
[2017-04-29] MEDS: ALPRAZolam 0.5 MG TABLET PO SCH ×3 (01:04→18:16)
[2017-04-29] MEDS: Nystatin SUSP 5 ML UD.LIQ PO SCH ×5 (01:04→21:44)
[2017-04-29] MEDS: Acetaminophen 325 MG TABLET PO PRN (03:56)
[2017-04-29] MEDS: Tiotropium 18 MCG inhalation IH SCH ×2 (08:48→14:01)
[2017-04-29] MEDS: Aspirin Enteric Coated 81 MG Tablet PO SCH (08:49)
[2017-04-29] MEDS: predniSONE 5 MG TABLET PO SCH (08:50)
--- NOTE | 2017-04-29 13:41 | Internal Med Progress Note ---
Date of Encounter: 04/29/17 Time of Encounter: 13:39 - Assessment and plan (1) CVA (cerebral vascular accident) Current Visit: Yes Status: Acute Assessment and plan: Patient's here for CVA seeing all therapist and working with MR mary mello. Biggest problems medications and her anxiety Qualifiers: Precerebral and cerebral artery: unspecified precerebral artery Qualified Code(s): I63.00 - Cerebral infarction due to thrombosis of unspecified precerebral artery (2) COPD (chronic obstructive pulmonary disease) Current Visit: Yes Status: Acute Assessment and plan: Although this seems to be quiet about Qualifiers: COPD type: emphysema Qualified Code(s): J43.9 - Emphysema, unspecified (3) HTN (hypertension) Current Visit: Yes Status: Acute Assessment and plan: Blood pressure is well controlled Qualifiers: Hypertension type: essential hypertension Qualified Code(s): I10 - Essential (primary) hypertension - Time Spent With Patient less than 15 minutes - Subjective Interval history: Another problem with the medicine again today. Patient states she is sick does not know what is causing it as refused all meds. Patient is literally. overwhelmed by anxiety. And this involves everything - Constitutional Vitals: Temp Pulse Resp BP Pulse Ox 98.1 F 63 16 120/65 90 04/29/17 07:00 04/29/17 07:00 04/29/17 07:00 04/29/17 07:00 04/29/17 07:00 General appearance: Present: A&O X 3 - Head Head exam: Present: atraumatic, normal inspection, normocephalic - Neck Neck exam general surgery: Present: supple, trachea midline. Absent: lymphadenopathy - Respiratory Respiratory exam: Present: CTAB. Absent: accessory muscle use, rales, rhonchi, wheezes - Cardiovascular Cardiovascular exam: Present: RRR, +S1, +S2. Absent: diastolic murmur, gallop, rubs, systolic murmur - GI/Abdominal GI/Abdominal exam: Present: normal bowel sounds, soft, no peritoneal signs. Absent: distended, tenderness Internal Medicine: Result - Labs CBC & Chem 7: 04/26/17 05:42 04/26/17 05:42 Labs: Lab is stable - ABG Interpretation ABG results: PT/INR, D-dimer PT 11.4 Seconds (9.4-12.1) 04/17/17 05:15 - VTE Documentation of Mechanical Device: Graduated compression elastic hosiery Consult Discharge Plan - Plan Referrals: NO,PCP [Primary Care Provider] -
[2017-04-29] MEDS: Patient Taking Own Medication 1 EACH PO SCH (21:45)
[2017-04-30] MEDS: ALPRAZolam 0.5 MG TABLET PO PRN ×2 (00:30→15:49)
[2017-04-30] MEDS: predniSONE 5 MG TABLET PO SCH (08:52)
[2017-04-30] MEDS: Aspirin Enteric Coated 81 MG Tablet PO SCH (08:52)
[2017-04-30] MEDS: Budesonide/Formoterol 80/4.5 MDI IH SCH ×2 (08:53→19:57)
[2017-04-30] MEDS: Tiotropium 18 MCG inhalation IH SCH (08:53)
[2017-04-30] MEDS: ALPRAZolam 0.5 MG TABLET PO SCH ×2 (08:53→19:57)
[2017-04-30] MEDS: Nystatin SUSP 5 ML UD.LIQ PO SCH ×4 (08:53→19:57)
--- NOTE | 2017-04-30 13:11 | Internal Med Progress Note ---
Date of Encounter: 04/30/17 Time of Encounter: 13:09 - Assessment and plan (1) CVA (cerebral vascular accident) Current Visit: Yes Status: Acute Assessment and plan: Hyun during to work with therapists. Anxiety disorder #1 problem. Anxiety is a problem by watched her ambulate to the gift shop back with her walker. She had standby with therapists Qualifiers: Precerebral and cerebral artery: unspecified precerebral artery Qualified Code(s): I63.00 - Cerebral infarction due to thrombosis of unspecified precerebral artery (2) COPD (chronic obstructive pulmonary disease) Current Visit: Yes Status: Acute Assessment and plan: Seems to be stable Qualifiers: COPD type: emphysema Qualified Code(s): J43.9 - Emphysema, unspecified (3) HTN (hypertension) Current Visit: Yes Status: Acute Assessment and plan: Well-controlled Qualifiers: Hypertension type: essential hypertension Qualified Code(s): I10 - Essential (primary) hypertension - Time Spent With Patient less than 15 minutes - Subjective Interval history: better today. taking breathing meds and cooperating with the therapists. - Constitutional Vitals: Temp Pulse Resp BP Pulse Ox 98.3 F 72 18 120/73 96 04/30/17 06:48 04/30/17 06:48 04/30/17 06:48 04/30/17 06:48 04/30/17 06:48 General appearance: Present: A&O X 3 - Head Head exam: Present: atraumatic, normal inspection, normocephalic - Neck Neck exam general surgery: Present: supple, trachea midline. Absent: lymphadenopathy - Respiratory Respiratory exam: Present: CTAB. Absent: accessory muscle use, rales, rhonchi, wheezes - Cardiovascular Cardiovascular exam: Present: RRR, +S1, +S2. Absent: diastolic murmur, gallop, rubs, systolic murmur Internal Medicine: Result - Labs CBC & Chem 7: 04/26/17 05:42 04/26/17 05:42 Labs: 'Lab is stable - ABG Interpretation ABG results: PT/INR, D-dimer PT 11.4 Seconds (9.4-12.1) 04/17/17 05:15 - VTE Documentation of Mechanical Device: Graduated compression elastic hosiery Consult Discharge Plan - Plan Referrals: NO,PCP [Primary Care Provider] -
[2017-04-30] MEDS: MOM Conc 10 ML UD.LIQ PO SCH (19:57)
[2017-05-01] MEDS: ALPRAZolam 0.5 MG TABLET PO SCH ×2 (08:56→20:57)
[2017-05-01] MEDS: Aspirin Enteric Coated 81 MG Tablet PO SCH (08:56)
[2017-05-01] MEDS: predniSONE 5 MG TABLET PO SCH (08:56)
[2017-05-01] MEDS: Tiotropium 18 MCG inhalation IH SCH (08:57)
[2017-05-01] MEDS: Nystatin SUSP 5 ML UD.LIQ PO SCH ×4 (08:59→19:57)
[2017-05-01] MEDS: Budesonide/Formoterol 80/4.5 MDI IH SCH ×2 (09:00→19:58)
[2017-05-01] MEDS ORDERED: traMADol 50 MG TABLET PO PRN (13:50)
[2017-05-01] MEDS: ALPRAZolam 0.5 MG TABLET PO PRN (14:05)
--- NOTE | 2017-05-01 18:41 | Internal Med Progress Note ---
Date of Encounter: 05/01/17 Time of Encounter: 18:36 - Assessment and plan (1) CVA (cerebral vascular accident) Current Visit: Yes Status: Acute Assessment and plan: Patient still insistent in one to go home. patient is unsafe. Poor judgement and insight into her deficits. Patient is resistant to education regarding safety. Patient is ambulating with SBA. Plan for patient to ambulate with walker to and from therapies. Patients poor safety awareness is her primary barrier at this time. Cognition is at her baseline. Patients right facial weakness has improved. Plan is to continue would PTOT to improve independence in ADLs. e. Qualifiers: Precerebral and cerebral artery: unspecified precerebral artery Qualified Code(s): I63.00 - Cerebral infarction due to thrombosis of unspecified precerebral artery (2) Depression Current Visit: Yes Status: Chronic Assessment and plan: On antidepressant. Qualifiers: Depression Type: major depressive disorder Major depression recurrence: recurrent Active/Remission status: currently active Major depression episode severity: moderate Qualified Code(s): F33.1 - Major depressive disorder, recurrent, moderate - Subjective Interval history: Patient was still demanding that she be sent home. She is nervous. She is anxious. She is depressed. Sh She wants to go home today.. . No shortness of breath. No chest pain. - Constitutional Vitals: Temp Pulse Resp BP Pulse Ox 97.6 F 76 14 152/76 95 05/01/17 07:00 05/01/17 07:00 05/01/17 07:00 05/01/17 07:00 05/01/17 07:00 General appearance: Present: A&O X 3 - Respiratory Respiratory exam: Present: CTAB. Absent: accessory muscle use, rales, rhonchi, wheezes - Cardiovascular Cardiovascular exam: Present: RRR, +S1, +S2. Absent: diastolic murmur, gallop, rubs, systolic murmur - GI/Abdominal GI/Abdominal exam: Present: normal bowel sounds, soft, no peritoneal signs. Absent: distended, tenderness - Extremities Exam Extremities exam: Present: warm, radial pulses palpable and symetrical. Absent : calf tenderness, cyanotic, pedal edema Internal Medicine: Result - Labs CBC & Chem 7: 04/26/17 05:42 04/26/17 05:42 - ABG Interpretation ABG results: PT/INR, D-dimer PT 11.4 Seconds (9.4-12.1) 04/17/17 05:15 - VTE Documentation of Mechanical Device: Graduated compression elastic hosiery Consult Discharge Plan - Plan Referrals: NO,PCP [Primary Care Provider] -
[2017-05-01] MEDS: MOM Conc 10 ML UD.LIQ PO SCH (19:57)
[2017-05-01] MEDS: Patient Taking Own Medication 1 EACH PO SCH (20:58)
--- NOTE | 2017-05-02 09:04 | Internal Med Progress Note ---
Date of Encounter: 05/02/17 Time of Encounter: 09:03 - Assessment and plan (1) CVA (cerebral vascular accident) Current Visit: Yes Status: Acute Assessment and plan: Patient still insistent in one to go home. patient is unsafe. Poor judgement and insight into her deficits. Patient is resistant to education regarding safety. Patient is ambulating with SBA. Plan for patient to ambulate with walker to and from therapies. Patients poor safety awareness is her primary barrier at this time. Cognition is at her baseline. Patients right facial weakness has improved. Plan is to continue would PTOT to improve independence in ADLs. e. Qualifiers: Precerebral and cerebral artery: unspecified precerebral artery Qualified Code(s): I63.00 - Cerebral infarction due to thrombosis of unspecified precerebral artery (2) Depression Current Visit: Yes Status: Chronic Assessment and plan: On antidepressant.zoloft Qualifiers: Depression Type: major depressive disorder Major depression recurrence: recurrent Active/Remission status: currently active Major depression episode severity: moderate Qualified Code(s): F33.1 - Major depressive disorder, recurrent, moderate - Subjective Interval history: Patient was still demanding that she be sent home. She is nervous. She is anxious. She is depressed. Sh She wants to go home today.. . No shortness of breath. No chest pain. - Constitutional Vitals: Temp Pulse Resp BP Pulse Ox 97.6 F 59 18 164/93 95 05/02/17 07:00 05/02/17 07:00 05/02/17 07:00 05/02/17 07:00 05/02/17 07:00 General appearance: Present: A&O X 3, pleasant, no acute distress Internal Medicine: Result - Labs CBC & Chem 7: 04/26/17 05:42 04/26/17 05:42 - ABG Interpretation ABG results: PT/INR, D-dimer PT 11.4 Seconds (9.4-12.1) 04/17/17 05:15 - VTE Documentation of Mechanical Device: Graduated compression elastic hosiery Consult Discharge Plan - Plan Referrals: NO,PCP [Primary Care Provider] -
[2017-05-02] MEDS: Budesonide/Formoterol 80/4.5 MDI IH SCH ×2 (09:27→23:04)
[2017-05-02] MEDS: Aspirin Enteric Coated 81 MG Tablet PO SCH (09:27)
[2017-05-02] MEDS: Nystatin SUSP 5 ML UD.LIQ PO SCH (09:28)
[2017-05-02] MEDS: ALPRAZolam 0.5 MG TABLET PO SCH ×3 (09:28→23:15)
[2017-05-02] MEDS: Tiotropium 18 MCG inhalation IH SCH (09:28)
[2017-05-02] MEDS: predniSONE 5 MG TABLET PO SCH (14:05)
[2017-05-02] MEDS: ALPRAZolam 0.5 MG TABLET PO PRN (15:37)
[2017-05-02] MEDS: MOM Conc 10 ML UD.LIQ PO SCH (20:04)
[2017-05-03 05:32] LABS: BUN/Creatinine Ratio 11 (6-26); Blood Urea Nitrogen 7 mg/dL (7-20); Calcium 9.5 mg/dL (8.6-10.8); Carbon Dioxide 26 mEq/L (19-29); Chloride 104 mEq/L (98-109); Glucose 109 mg/dL (70-99); Osmolality,Calculated 287 (280-300); Potassium 3.8 mEq/L (3.5-4.5); Sodium 139 mEq/L (136-145); eGFR For African Americans > 60 (> 60); eGFR For Non-African Americans > 60 (> 60)
[2017-05-03 05:35] LABS: Basophils % 0.4 %; Eosinophils # 0.3 K/mcL (0.0-0.6); Eosinophils % 2.7 %; Hematocrit 37.2 % (35.3-44.9); Hemoglobin 12.6 g/dL (11.5-15.4); Immature Granulocytes % 0.6 % (0-4); Lymphocytes # 2.6 K/mcL (0.6-4.6); Lymphocytes % 25.6 %; Mean Corpuscular HGB Conc 33.9 g/dL (31.6-35.5); Mean Corpuscular Hemoglobin 29.5 pg (28.0-33.3); Mean Corpuscular Volume 87.1 fL (83.0-100.0); Mean Platelet Volume 10.6 fL (9.4-12.4); Monocytes # 0.9 K/mcL (0.0-1.3); Monocytes % 8.8 %; Neutrophils # 6.3 K/mcL (1.6-8.9); Platelet Count 313 K/mcL (140-400); Red Blood Count 4.27 M/mcL (3.82-4.97); Red Cell Distribution Width 12.9 % (11.5-14.5); Segmented Neutrophils % 61.9 %
[2017-05-03] MEDS: Tiotropium 18 MCG inhalation IH SCH (07:57)
[2017-05-03] MEDS: Aspirin Enteric Coated 81 MG Tablet PO SCH (08:02)
[2017-05-03] MEDS: predniSONE 5 MG TABLET PO SCH (08:02)
[2017-05-03] MEDS: ALPRAZolam 0.5 MG TABLET PO SCH ×2 (08:08→19:58)
[2017-05-03] MEDS: Budesonide/Formoterol 80/4.5 MDI IH SCH ×2 (09:27→22:30)
[2017-05-03] MEDS: ALPRAZolam 0.5 MG TABLET PO PRN (12:05)
--- NOTE | 2017-05-03 13:29 | Internal Med Progress Note ---
Date of Encounter: 05/03/17 Time of Encounter: 13:27 - Assessment and plan (1) CVA (cerebral vascular accident) Current Visit: Yes Status: Acute Qualifiers: Precerebral and cerebral artery: unspecified precerebral artery Qualified Code(s): I63.00 - Cerebral infarction due to thrombosis of unspecified precerebral artery (2) COPD (chronic obstructive pulmonary disease) Current Visit: Yes Status: Acute Qualifiers: COPD type: emphysema Qualified Code(s): J43.9 - Emphysema, unspecified (3) HTN (hypertension) Current Visit: Yes Status: Acute Qualifiers: Hypertension type: essential hypertension Qualified Code(s): I10 - Essential (primary) hypertension - Subjective Interval history: better today. taking breathing meds and cooperating with the therapists. - Constitutional Vitals: Temp Pulse Resp BP Pulse Ox 98.6 F 61 16 161/97 95 05/03/17 07:02 05/03/17 07:02 05/03/17 07:02 05/03/17 07:02 05/03/17 07:02 General appearance: Present: A&O X 3, pleasant, no acute distress - Head Head exam: Present: atraumatic, normal inspection, normocephalic - Neck Neck exam general surgery: Present: supple, trachea midline. Absent: lymphadenopathy - Respiratory Respiratory exam: Present: CTAB. Absent: accessory muscle use, rales, rhonchi, wheezes - Cardiovascular Cardiovascular exam: Present: RRR, +S1, +S2. Absent: diastolic murmur, gallop, rubs, systolic murmur Internal Medicine: Result - Labs CBC & Chem 7: 05/03/17 04:55 05/03/17 04:55 Labs: Short CBC 05/03/17 Range/Units 04:55 WBC 10.2 (4.3-11.1) K/mcL Hgb 12.6 (11.5-15.4) g/dL Hct 37.2 (35.3-44.9) % Plt Count 313 (140-400) K/mcL Neutrophils # 6.3 (1.6-8.9) K/mcL BMP 05/03/17 04:55 Sodium 139 Potassium 3.8 Chloride 104 Carbon Dioxide 26 BUN 7 Creatinine 0.66 Glucose 109 H Calcium 9.5 - ABG Interpretation ABG results: PT/INR, D-dimer PT 11.4 Seconds (9.4-12.1) 04/17/17 05:15 - VTE Documentation of Mechanical Device: Graduated compression elastic hosiery Consult Discharge Plan - Plan Referrals: sadie hernandez [Other] NO,PCP [Primary Care Provider] -
--- NOTE | 2017-05-03 13:32 | Internal Med Progress Note ---
Date of Encounter: 05/03/17 Time of Encounter: 13:30 - Assessment and plan (1) CVA (cerebral vascular accident) Current Visit: Yes Status: Acute Assessment and plan: Working with PT OT TR. Speech staff feels she is much improved attitude is better safety is improved and she is going to be independent of the room. Qualifiers: Precerebral and cerebral artery: unspecified precerebral artery Qualified Code(s): I63.00 - Cerebral infarction due to thrombosis of unspecified precerebral artery (2) COPD (chronic obstructive pulmonary disease) Current Visit: Yes Status: Acute Assessment and plan: Seems to be stable Qualifiers: COPD type: emphysema Qualified Code(s): J43.9 - Emphysema, unspecified (3) HTN (hypertension) Current Visit: Yes Status: Acute Assessment and plan: A pressure well controlled Qualifiers: Hypertension type: essential hypertension Qualified Code(s): I10 - Essential (primary) hypertension - Time Spent With Patient less than 15 minutes - Subjective Interval history: better today. taking breathing meds and cooperating with the therapists.. Doing much better today than last week. Attitudes better but still insisting on discharge Wednesday. Staff agreed with medical independent in the room today and see if she functions well make her independent on the unit tomorrow. - Constitutional Vitals: Temp Pulse Resp BP Pulse Ox 98.6 F 61 16 161/97 95 05/03/17 07:02 05/03/17 07:02 05/03/17 07:02 05/03/17 07:02 05/03/17 07:02 General appearance: Present: A&O X 3, pleasant, no acute distress - Head Head exam: Present: atraumatic, normal inspection, normocephalic - Respiratory Respiratory exam: Present: CTAB. Absent: accessory muscle use, rales, rhonchi, wheezes - Cardiovascular Cardiovascular exam: Present: RRR, +S1, +S2. Absent: diastolic murmur, gallop, rubs, systolic murmur Internal Medicine: Result - Labs CBC & Chem 7: 05/03/17 04:55 05/03/17 04:55 Labs: Short CBC 05/03/17 Range/Units 04:55 WBC 10.2 (4.3-11.1) K/mcL Hgb 12.6 (11.5-15.4) g/dL Hct 37.2 (35.3-44.9) % Plt Count 313 (140-400) K/mcL Neutrophils # 6.3 (1.6-8.9) K/mcL BMP 05/03/17 04:55 Sodium 139 Potassium 3.8 Chloride 104 Carbon Dioxide 26 BUN 7 Creatinine 0.66 Glucose 109 H Calcium 9.5 Lab is stable lab is stable - ABG Interpretation ABG results: PT/INR, D-dimer PT 11.4 Seconds (9.4-12.1) 04/17/17 05:15 - VTE Documentation of Mechanical Device: Graduated compression elastic hosiery Consult Discharge Plan - Plan Referrals: sadie hernandez [Other] NO,PCP [Primary Care Provider] -
[2017-05-03] MEDS: Patient Taking Own Medication 1 EACH PO SCH (19:59)
[2017-05-03] MEDS: MOM Conc 10 ML UD.LIQ PO SCH (20:00)
[2017-05-04] MEDS: ALPRAZolam 0.5 MG TABLET PO PRN ×2 (00:15→14:17)
[2017-05-04] MEDS: Ondansetron ODT 4 MG TAB.RAPDIS PO PRN (00:15)
[2017-05-04] MEDS: Tiotropium 18 MCG inhalation IH SCH (08:15)
[2017-05-04] MEDS: Aspirin Enteric Coated 81 MG Tablet PO SCH (08:16)
[2017-05-04] MEDS: ALPRAZolam 0.5 MG TABLET PO SCH ×2 (08:17→22:33)
[2017-05-04] MEDS: predniSONE 5 MG TABLET PO SCH ×3 (08:17→11:27)
[2017-05-04] MEDS: Budesonide/Formoterol 80/4.5 MDI IH SCH ×2 (08:28→22:36)
--- NOTE | 2017-05-04 13:17 | Internal Med Progress Note ---
Date of Encounter: 05/04/17 Time of Encounter: 13:14 - Assessment and plan (1) CVA (cerebral vascular accident) Current Visit: Yes Status: Acute Assessment and plan: Original diagnosis for admission much of this is resolved thank. Qualifiers: Precerebral and cerebral artery: unspecified precerebral artery Qualified Code(s): I63.00 - Cerebral infarction due to thrombosis of unspecified precerebral artery (2) COPD (chronic obstructive pulmonary disease) Current Visit: Yes Status: Acute Assessment and plan: Not a problem Qualifiers: COPD type: emphysema Qualified Code(s): J43.9 - Emphysema, unspecified (3) HTN (hypertension) Current Visit: Yes Status: Acute Assessment and plan: The bp well-controlled Qualifiers: Hypertension type: essential hypertension Qualified Code(s): I10 - Essential (primary) hypertension - Time Spent With Patient less than 15 minutes - Subjective Interval history: Patient is ambulating in the [place] independently. She smiling more attitudes better she thinks that taking half of her antidepressant medicine is tolerable. Still complains of stomach distress and states that that she may overeat. We have discussed strategies for decreasing this. - Constitutional Vitals: Temp Pulse Resp BP Pulse Ox 98.0 F 63 16 131/78 95 05/04/17 07:00 05/04/17 07:00 05/04/17 07:00 05/04/17 07:00 05/04/17 07:00 General appearance: Present: A&O X 3, pleasant, no acute distress - Head Head exam: Present: atraumatic, normal inspection, normocephalic - Neck Neck exam general surgery: Present: supple, trachea midline. Absent: lymphadenopathy - Respiratory Respiratory exam: Present: CTAB. Absent: accessory muscle use, rales, rhonchi, wheezes - Cardiovascular Cardiovascular exam: Present: RRR, +S1, +S2. Absent: diastolic murmur, gallop, rubs, systolic murmur - GI/Abdominal GI/Abdominal exam: Present: normal bowel sounds, soft, no peritoneal signs. Absent: distended, tenderness Internal Medicine: Result - Labs CBC & Chem 7: 05/03/17 04:55 05/03/17 04:55 Labs: Lab is stable - ABG Interpretation ABG results: PT/INR, D-dimer PT 11.4 Seconds (9.4-12.1) 04/17/17 05:15 - VTE Documentation of Mechanical Device: Graduated compression elastic hosiery Consult Discharge Plan - Plan Referrals: sadie hernandez [Other] - 05/12/17 12:45 pm NO,PCP [Primary Care Provider] -
[2017-05-04] MEDS: MOM Conc 10 ML UD.LIQ PO SCH (22:35)
[2017-05-05 06:57] VITALS: BP 171/83
[2017-05-05] MEDS: ALPRAZolam 0.5 MG TABLET PO SCH (08:15)
[2017-05-05] MEDS: Aspirin Enteric Coated 81 MG Tablet PO SCH (08:17)
[2017-05-05] MEDS: Budesonide/Formoterol 80/4.5 MDI IH SCH (08:17)
[2017-05-05] MEDS: Tiotropium 18 MCG inhalation IH SCH (08:18)
[2017-05-05] MEDS: ALPRAZolam 0.5 MG TABLET PO PRN (10:51)
--- NOTE | 2017-05-05 10:52 | Physician Discharge Referral ---
Home Health/Hosp Referral Info Transfer to: Home Health - Diagnosis (1) CVA (cerebral vascular accident) Priority: Primary Status: Acute (2) Depression Priority: Secondary Status: Chronic - Respiratory Orders None Smoking Cessation: Smoking cessation has been advised. For more information, call the [place] Tobacco Quit Line at 8-625-QMXO-NOW. - Diet/Nutrition Diet/Nutrition Orders: Regular - Activity Activity Orders: Up ad russell - Services Needed Following services are medically necessary services: Nursing, Physical Therapy, Occupational Therapy - Transfer Medications Prescriptions: Ondansetron [Zofran] 8 mg PO Q8HR PRN #20 tablet PRN Reason: Nausea Clopidogrel [Plavix] 75 mg PO DAILY #30 tablet Sertraline [Zoloft] 50 mg PO DAILY #30 tablet Home Medications: ALPRAZolam [Xanax 0.5 MG Tablet] 0.5 mg PO BID 04/16/17 [History] Albuterol Sulfate [Proair Hfa] 2 puff IH Q2HR PRN 04/16/17 [History] Aspirin [Ecotrin] 81 mg PO DAILY 04/16/17 [History] Atorvastatin [Lipitor] 10 mg PO HS 04/16/17 [History] Clopidogrel Bisulfate [Plavix] 75 mg PO DAILY 04/16/17 [History] Dicyclomine [Bentyl] 10 mg PO QID PRN 04/16/17 [History] Fluticasone/Salmeterol [Advair 250-50 Diskus] 1 each IH BID 04/16/17 [History] Lisinopril [Zestril] 10 mg PO DAILY 04/16/17 [History] Pantoprazole Sodium [Protonix] 40 mg PO DAILY 04/16/17 [History] Polyethylene Glycol [Polyox Wsr-301] 1 gm PO DAILY 04/16/17 [History] PredniSONE [Renard] 5 mg PO DAILY 04/16/17 [History] Saxagliptin HCl [Onglyza] 5 mg PO 04/16/17 [History] Tiotropium [Spiriva] 18 mcg IH 0700 04/16/17 [History] Tramadol HCl [Ultram] 50 mg PO BID PRN 04/16/17 [History] Acetaminophen [Tylenol] 650 mg PO Q6HR PRN #0 tablet 05/05/17 [Rx] Clopidogrel [Plavix] 75 mg PO DAILY #30 tablet 05/05/17 [Rx] MOM Conc [MILK OF MAGNESIA conc] 10 ml PO HS ud.liq 05/05/17 [Rx] Mag Hydrox/Al Hydrox/Simeth [Maalox] 15 ml PO Q4H PRN #0 udc 05/05/17 [Rx] Montelukast [Singulair] 5 mg PO HS tab.chew 05/05/17 [Rx] Ondansetron [Zofran] 8 mg PO Q8HR PRN #20 tablet 05/05/17 [Rx] Sertraline [Zoloft] 50 mg PO DAILY #30 tablet 05/05/17 [Rx] Allergies/Adverse Reactions: Allergies levofloxacin [From Levaquin] Allergy (Mild, Verified 04/16/17 15:16) Rash atenolol Allergy (Verified 04/16/17 15:17) Rash Gatifloxacin [From Tequin] Allergy (Verified 04/16/17 15:18) Rash Certification: Further, I certify that my clinical findings support that this patient is homebound (i.e. absences from home require considerable and taxing effort and are for medical reasons or bahai services or infrequently or short duration when for other reasons) because: need PT OT to improve independence of ADL Homebound Reason: Patient requires assistance of a person or device to safely leave home, Absences from home are contraindicated except to recieve medical care, Post-surgery restriction and or conditions limit ability to leave home, Leaving home requires considerable and taxing effort due to condition, Altered mental status requiring supervision when leaving home, Severity of cardiac or pulmonary status limits activity tolerance Attestation: My signature below is to certify that this patient is under my care and that I, or nurse practitioner, or a physician's events and promotions assistant working with me, has a face-to -face encounter with this patient.
--- NOTE | 2017-05-05 11:51 | Discharge Summary ---
Date of Encounter: 05/05/17 Time of Encounter: 11:49 - Discharge Diagnosis (1) CVA (cerebral vascular accident) Priority: Primary Status: Acute Comments: Much improved Qualifiers: Precerebral and cerebral artery: unspecified precerebral artery Qualified Code(s): I63.00 - Cerebral infarction due to thrombosis of unspecified precerebral artery (2) COPD (chronic obstructive pulmonary disease) Priority: Secondary Status: Acute Comments: Has not been a problem Qualifiers: COPD type: emphysema Qualified Code(s): J43.9 - Emphysema, unspecified (3) HTN (hypertension) Priority: Secondary Status: Acute Comments: Blood pressures controlled Qualifiers: Hypertension type: essential hypertension Qualified Code(s): I10 - Essential (primary) hypertension - Discharge Medications Prescriptions: Ondansetron [Zofran] 8 mg PO Q8HR PRN #20 tablet PRN Reason: Nausea Clopidogrel [Plavix] 75 mg PO DAILY #30 tablet Sertraline [Zoloft] 50 mg PO DAILY #30 tablet Home Medications: ALPRAZolam [Xanax 0.5 MG Tablet] 0.5 mg PO BID 04/16/17 [History] Albuterol Sulfate [Proair Hfa] 2 puff IH Q2HR PRN 04/16/17 [History] Aspirin [Ecotrin] 81 mg PO DAILY 04/16/17 [History] Atorvastatin [Lipitor] 10 mg PO HS 04/16/17 [History] Clopidogrel Bisulfate [Plavix] 75 mg PO DAILY 04/16/17 [History] Dicyclomine [Bentyl] 10 mg PO QID PRN 04/16/17 [History] Fluticasone/Salmeterol [Advair 250-50 Diskus] 1 each IH BID 04/16/17 [History] Lisinopril [Zestril] 10 mg PO DAILY 04/16/17 [History] Pantoprazole Sodium [Protonix] 40 mg PO DAILY 04/16/17 [History] Polyethylene Glycol [Polyox Wsr-301] 1 gm PO DAILY 04/16/17 [History] PredniSONE [Renard] 5 mg PO DAILY 04/16/17 [History] Saxagliptin HCl [Onglyza] 5 mg PO 04/16/17 [History] Tiotropium [Spiriva] 18 mcg IH 0700 04/16/17 [History] Tramadol HCl [Ultram] 50 mg PO BID PRN 04/16/17 [History] Acetaminophen [Tylenol] 650 mg PO Q6HR PRN #0 tablet 05/05/17 [Rx] Clopidogrel [Plavix] 75 mg PO DAILY #30 tablet 05/05/17 [Rx] MOM Conc [MILK OF MAGNESIA conc] 10 ml PO HS ud.liq 05/05/17 [Rx] Mag Hydrox/Al Hydrox/Simeth [Maalox] 15 ml PO Q4H PRN #0 udc 05/05/17 [Rx] Montelukast [Singulair] 5 mg PO HS tab.chew 05/05/17 [Rx] Ondansetron [Zofran] 8 mg PO Q8HR PRN #20 tablet 05/05/17 [Rx] Sertraline [Zoloft] 50 mg PO DAILY #30 tablet 05/05/17 [Rx] Allergies/Adverse Reactions: Allergies levofloxacin [From Levaquin] Allergy (Mild, Verified 04/16/17 15:16) Rash atenolol Allergy (Verified 04/16/17 15:17) Rash Gatifloxacin [From Tequin] Allergy (Verified 04/16/17 15:18) Rash Date of admission: 04/16/17 14:26 Primary care physician: PCP NO Consults: 04/16/17 15:19 Consult to Occupational Therapy [CONS] Routine Comment: Evaluate, develop and implement POC Reason for Consult: eval cva Consult to Physical Medicine/Rehab [CONS] Routine Reason for Consult: cva Call Completed: Yes Consult to Physical Therapy [CONS] Routine Comment: Evaluate, develop and implement POC Reason for Consult: eval cva Consult to Recreational Therapy [CONS] Routine Comment: Evaluate, develop and implement POC Consult to Sourcing Intern [CONS] Routine Reason for SW Consult: d/c planning Consult to Speech Therapy [CONS] Routine Comment: Evaluate, develop and implement POC Reason for Consult: speech impairment Call Completed: Yes 04/16/17 15:21 Consult to Psychology [CONS] Routine Consulting Provider: Es Vicente Reason for Consult: cva Call Completed: Yes 04/19/17 13:44 Consult to Psychology [CONS] Routine Consulting Provider: Es Vicente Reason for Consult: anxiety Time Notified: 14:00 Call Completed: No Discharging clinician: Russ Boudreaux Anticipated date of discharge: 05/05/17 - Patient Status Disposition: Home Health Service Condition: Good Functional capacity at discharge: uses cane/walker Overall status at discharge: patient is progressing back to baseline - Discharge Instructions Instructions: Depression (DC), Chronic Obstructive Pulmonary Disease (DC), Chronic Hypertension (DC) Follow Up With: sadie hernandez [Other] - 05/12/17 12:45 pm NO,PCP [Primary Care Provider] - - Diet and Activity Activity: ambulate only with your walker Diet: diabetic diet Interval History: Patient was admitted for CVA facial droop is resolved speech is good swallowing is good and ambulation with walker is stable Hospital course: Ms. Monzon is a 66 year old female Patient has done very well be discharged home today to company of her family. She has a daughter that is an RN - Time Spent with Patient Total time spent providing and/or coordinating discharge services: Less than 30 minutes - Constitutional Vitals: Temp Pulse Resp BP Pulse Ox 97.6 F 68 16 171/83 94 05/05/17 06:57 05/05/17 07:46 05/05/17 07:46 05/05/17 07:46 05/05/17 07:46 General appearance: Present: A&O X 3, pleasant, no acute distress - Head Head exam: Present: atraumatic, normal inspection, normocephalic - Neck Neck exam general surgery: Present: supple, trachea midline. Absent: lymphadenopathy - Respiratory Respiratory exam: Present: CTAB. Absent: accessory muscle use, rales, rhonchi, wheezes - Cardiovascular Cardiovascular exam: Present: RRR, +S1, +S2. Absent: diastolic murmur, gallop, rubs, systolic murmur - VTE Documentation of Mechanical Device: Graduated compression elastic hosiery
== END 2017-05-05 12:30 | disposition home health service (06) | DRG 57 ==
LOC: INPGRE 14:26
PROVIDERS: ADMIT Internal Medicine; ATTEND Internal Medicine